=== PATIENT | male | born 1950 | race Caucasian/White ===

== ENCOUNTER → 2023-11-06 09:22 | Outpatient (REF) | payer MEDICARE, OTHER, SELFPAY ==
[2023-11-06 13:30] LABS: PSA, Total - Screen 2.26 ng/ml (0.0-4.0)
== END ==
LOC: HWLAB 09:22
PROVIDERS: ATTENDING PHYSICIAN Internal Medicine
DX: Z12.5 Encounter for screening for malignant neoplasm of prostate (principal)
CPT/HCPCS: 36415; G0103

== ENCOUNTER → 2023-12-09 07:47 | Outpatient (REF) | payer MEDICARE, OTHER, SELFPAY ==
[2023-12-09 09:39] LABS: ALT (SGPT) 28 U/L (0-50); AST (SGOT) 27 U/L (17-59); Alkaline Phosphatase 77 U/L (38-126); Direct Bilirubin 0.3 mg/dl (0.0-0.4); Glucose 109 mg/dl (70-99); HDL Cholesterol 49 mg/dl; LDL Cholesterol, Calculated 59 mg/dl; Total Bilirubin 0.7 mg/dl (0.2-1.3); Total Cholesterol 128 mg/dl (50-199); Total Protein 6.8 g/dl (6.3-8.2); Triglyceride 103 mg/dl (10-149); Very Low Density Lipoprotein 20 mg/dl (0-30)
== END ==
LOC: HWLAB 07:47
PROVIDERS: ATTENDING PHYSICIAN Internal Medicine
DX: E11.9 Type 2 diabetes mellitus without complications (principal); I10 Essential (primary) hypertension; E78.00 Pure hypercholesterolemia, unspecified
CPT/HCPCS: 36415; 80061; 80076; 82947; 83036

== ENCOUNTER → 2024-02-14 08:28 | Outpatient (REF) | payer MEDICARE, OTHER, SELFPAY ==
[2024-02-14 13:33] LABS: PSA, Total - Diagnostic 0.69 ng/ml (0.0-4.0)
== END ==
LOC: HWLAB 08:28
PROVIDERS: ATTENDING PHYSICIAN Specialist; FAMILY PHYSICIAN Internal Medicine
DX: R97.20 Elevated prostate specific antigen [PSA] (principal)
CPT/HCPCS: 36415; 84153

== ENCOUNTER → 2024-05-18 11:04 | Outpatient (REF) | payer MEDICARE, OTHER, SELFPAY | LOC: DHCBC/DCA 11:04 | PROVIDERS: ATTENDING PHYSICIAN Internal Medicine Cardiovascular Disease; FAMILY PHYSICIAN Internal Medicine | DX: I10 Essential (primary) hypertension (principal); I49.3 Ventricular premature depolarization; R94.31 Abnormal electrocardiogram [ECG] [EKG] | CPT/HCPCS: 78452; 93017; A9500; J2785 ==

== ENCOUNTER → 2024-05-20 16:04 | Outpatient (REF) | payer MEDICARE, OTHER, SELFPAY | LOC: HWRCS 16:04 | PROVIDERS: ATTENDING PHYSICIAN Internal Medicine Cardiovascular Disease; FAMILY PHYSICIAN Internal Medicine | DX: I10 Essential (primary) hypertension (principal); I49.3 Ventricular premature depolarization | CPT/HCPCS: 93306 ==

== ENCOUNTER → 2024-05-29 08:31 | Outpatient (REF) | payer MEDICARE, OTHER, SELFPAY ==
[2024-05-29 11:31] LABS: % Basophils 0.2 % (0-2); % Eosinophils 2.2 % (0-6); % Immature Granulocytes 0.3 % (0-0.5); % Lymphocytes 27.3 % (20.5-51.1); Absolute Eosinophils 0.2 10^3/uL (0-0.7); Absolute Lymphocytes 2.5 10^3/uL (1.2-3.4); Absolute Monocytes 0.7 10^3/uL (0.1-0.6); Absolute Neutrophils 5.7 10^3/uL (1.4-6.5); Hematocrit 46.2 % (39.0-52.0); Hemoglobin 16.1 g/dL (13.0-18.0); Mean Corp Hgb Conc. 34.8 g/dL (33.0-37.0); Mean Corpuscular Hgb 32.3 pg (27.0-31.0); Mean Corpuscular Volume 92.8 fL (80.0-94.0); Mean Platelet Volume 10.7 fL (7.4-10.4); Nucleated Red Blood Cells % 0 % (-); Platelet Count 178 10^3/uL (130-400); Red Blood Cell Count 4.98 10^6/uL (4.70-6.10); Red Cell Dist. Width 13.3 % (11.5-14.5); White Blood Cell Count 9.2 10^3/uL (4.8-10.8)
[2024-05-29 11:45] LABS: ALT (SGPT) 28 U/L (0-50); AST (SGOT) 26 U/L (17-59); Albumin 4.3 g/dl (3.5-5.0); Alkaline Phosphatase 74 U/L (38-126); Blood Urea Nitrogen 13 mg/dl (9-20); Calcium 9.1 mg/dl (8.4-10.2); Carbon Dioxide 24 mmol/L (22-30); Chloride 103 mmol/L (98-107); Glucose 102 mg/dl (70-99); HDL Cholesterol 53 mg/dl; LDL Cholesterol, Calculated 47 mg/dl; Potassium 4.7 mmol/L (3.5-5.1); Sodium 140 mmol/L (135-145); Total Bilirubin 0.7 mg/dl (0.2-1.3); Total Cholesterol 120 mg/dl (50-199); Total Protein 6.9 g/dl (6.3-8.2); Triglyceride 102 mg/dl (10-149); Very Low Density Lipoprotein 20 mg/dl (0-30); eGFR > 60.00
[2024-05-29 13:58] LABS: Glycohemoglobin (HgbA1c) 5.6 % (4.0-5.6)
== END ==
LOC: HWLAB 08:31
PROVIDERS: ATTENDING PHYSICIAN Internal Medicine
DX: E78.5 Hyperlipidemia, unspecified (principal); I10 Essential (primary) hypertension; Z00.00 Encounter for general adult medical examination without abnormal findings; E11.59 Type 2 diabetes mellitus with other circulatory complications
CPT/HCPCS: 36415; 80053; 80061; 83036; 85025

== ENCOUNTER → 2024-06-12 08:51 | Outpatient (REF) | payer MEDICARE, OTHER, SELFPAY ==
[2024-06-12 13:28] LABS: Vitamin B12 806 pg/ml (239-931)
== END ==
LOC: EMG 08:51
PROVIDERS: ATTENDING PHYSICIAN Internal Medicine
DX: R20.2 Paresthesia of skin (principal)
CPT/HCPCS: 36415; 82607; 95886; 95911

== ENCOUNTER → 2024-07-07 13:48 | Outpatient (REF) | payer MEDICARE, OTHER, SELFPAY ==
[2024-07-07 16:30] LABS: Erythrocyte Sed Rate 15 mm/hour (0-20)
== END ==
LOC: HWLAB 13:48
PROVIDERS: ATTENDING PHYSICIAN Specialist; FAMILY PHYSICIAN Internal Medicine
DX: R20.0 Anesthesia of skin (principal); E11.42 Type 2 diabetes mellitus with diabetic polyneuropathy
CPT/HCPCS: 36415; 84155; 84165; 85652

== ENCOUNTER → 2024-12-04 08:40 | Outpatient (REF) | payer MEDICARE, OTHER, SELFPAY ==
[2024-12-04 16:19] LABS: ALT (SGPT) 23 U/L (0-50); AST (SGOT) 21 U/L (17-59); Albumin 4.3 g/dl (3.5-5.0); Alkaline Phosphatase 81 U/L (38-126); Direct Bilirubin 0.3 mg/dl (0.0-0.4); Glucose 93 mg/dl (70-99); HDL Cholesterol 43 mg/dl; LDL Cholesterol, Calculated 44 mg/dl; Total Bilirubin 0.8 mg/dl (0.2-1.3); Total Cholesterol 105 mg/dl (50-199); Total Protein 6.7 g/dl (6.3-8.2); Triglyceride 90 mg/dl (10-149); Very Low Density Lipoprotein 18 mg/dl (0-30)
== END ==
LOC: HWLAB 08:40
PROVIDERS: ATTENDING PHYSICIAN Internal Medicine
DX: E78.5 Hyperlipidemia, unspecified (principal); E03.9 Hypothyroidism, unspecified; E11.59 Type 2 diabetes mellitus with other circulatory complications
CPT/HCPCS: 36415; 80061; 80076; 82947; 83036

== ENCOUNTER → 2025-02-12 13:00 | Outpatient (REF) | payer MEDICARE, OTHER, SELFPAY | LOC: PAVMRI 13:00 | PROVIDERS: ATTENDING PHYSICIAN Student in an Organized Health Care Education/Training Program; FAMILY PHYSICIAN Internal Medicine; OTHER PHYSICIAN Anesthesiology Pain Medicine | DX: M53.3 Sacrococcygeal disorders, not elsewhere classified (principal); M48.062 Spinal stenosis, lumbar region with neurogenic claudication | CPT/HCPCS: 72148 ==

== ENCOUNTER → 2025-06-14 08:09 | Outpatient (REF) | payer MEDICARE, OTHER, SELFPAY ==
[2025-06-14 09:54] LABS: Hematocrit 45.0 % (39.0-52.0); Hemoglobin 14.8 g/dL (13.0-18.0); Mean Corp Hgb Conc. 32.9 g/dL (33.0-37.0); Mean Corpuscular Volume 94.1 fL (80.0-94.0); Nucleated Red Blood Cells % 0 % (-); Platelet Count 224 10^3/uL (130-400); Red Cell Dist. Width 13.5 % (11.5-14.5)
[2025-06-14 10:35] LABS: ALT (SGPT) 22 U/L (0-50); AST (SGOT) 20 U/L (17-59); Albumin 4.3 g/dl (3.5-5.0); Alkaline Phosphatase 70 U/L (38-126); Blood Urea Nitrogen 10 mg/dl (9-20); Calcium 9.3 mg/dl (8.4-10.2); Carbon Dioxide 27 mmol/L (22-30); Chloride 103 mmol/L (98-107); Glucose 94 mg/dl (70-99); HDL Cholesterol 41 mg/dl; LDL Cholesterol, Calculated 56 mg/dl; Potassium 4.6 mmol/L (3.5-5.1); Sodium 137 mmol/L (135-145); Total Protein 7.3 g/dl (6.3-8.2); Very Low Density Lipoprotein 19 mg/dl (0-30); eGFR > 60.00
[2025-06-14 11:38] LABS: Glycohemoglobin (HgbA1c) 5.8 % (4.0-5.9)
== END ==
LOC: HWLAB 08:09
PROVIDERS: ATTENDING PHYSICIAN Internal Medicine
DX: E11.59 Type 2 diabetes mellitus with other circulatory complications (principal); E66.9 Obesity, unspecified; Z00.01 Encounter for general adult medical examination with abnormal findings; Z12.5 Encounter for screening for malignant neoplasm of prostate; E03.9 Hypothyroidism, unspecified; E78.5 Hyperlipidemia, unspecified; E78.00 Pure hypercholesterolemia, unspecified; I10 Essential (primary) hypertension; R97.20 Elevated prostate specific antigen [PSA]
CPT/HCPCS: 36415; 80053; 80061; 83036; 84153; 84154; 84443; 85025